=== PATIENT | male | born 1980 | race Caucasian/White ===

== ENCOUNTER 2025-03-11 13:03 | Outpatient (CLI) | payer OTHER ==
--- NOTE | 2025-03-12 08:25 | RADIOLOGY REPORT ---
EXAM: MR MRI UPPER EXTREMITY LEFT HISTORY: UNSP INJURY OF MUSC/FASC/T TECHNIQUE: Multiplanar, multisequence MRI of the left elbow was performed without contrast. COMPARISON: None FINDINGS: Joint: There is no elbow joint effusion. There is no synovitis or loose body. Bones and articular cartilage: Bone marrow signal is homogenous and unremarkable. No high-grade artic ular cartilage loss. The alignment is within normal limits. Ligaments and tendons: The ulnar collateral ligament is intact. The radial collateral ligament, later al ulnar collateral ligament (LUCL) and annular ligament are intact. The common flexor tendon is inta ct. There is mild tendinopathy at the common extensor tendon origin. The biceps and brachialis tendo n are intact. The triceps tendon is intact. Nerves: The ulnar nerve is normal in signal intensity and caliber and normally located in the cubital tunnel. The medial and radial nerves are intact. Muscles: Regional musculature is preserved in bulk and signal characteristics. Soft tissues: There subcutaneous edema in the posterior elbow. IMPRESSION: 1. Mild tendinosis at the common extensor tendon origin.
== END 2025-03-11 23:59 | disposition home or self-care (01) ==
LOC: MRI02 13:03
PROVIDERS: ATTEND Nurse Practitioner
DX: S46.202A Unspecified injury of muscle, fascia and tendon of other parts of biceps, left arm, initial encounter (principal); M77.8 Other enthesopathies, not elsewhere classified; X58.XXXA Exposure to other specified factors, initial encounter; Y93.89 Activity, other specified; Y92.89 Other specified places as the place of occurrence of the external cause; Y99.8 Other external cause status
CPT/HCPCS: 73221